=== PATIENT | female | born 1975 | race Caucasian/White ===

== ENCOUNTER 2019-08-19 15:07 | Outpatient (RCR) | payer OTHER | END 2019-09-03 13:27 | disposition home or self-care (01) | LOC: WSOH 15:07 | DX: S57.81XA Crushing injury of right forearm, initial encounter (principal); Y04.1XXA Assault by human bite, initial encounter; F41.9 Anxiety disorder, unspecified; Z90.710 Acquired absence of both cervix and uterus; Y99.0 Civilian activity done for income or pay ==